=== PATIENT | female | born 1955 ===

== ENCOUNTER 2024-08-04 06:20 | Day surgery (SDC) | payer OTHER, SELFPAY | END 2024-08-04 13:42 | disposition home or self-care (01) | LOC: GI 06:20 | PROVIDERS: ATTENDING PHYSICIAN Internal Medicine Gastroenterology | DX: Z12.11 Encounter for screening for malignant neoplasm of colon (principal); K57.30 Diverticulosis of large intestine without perforation or abscess without bleeding; K64.8 Other hemorrhoids; Z86.0100 Personal history of colon polyps, unspecified | CPT/HCPCS: G0105 ==